=== PATIENT | male | born 1930 | race Caucasian/White ===

== ENCOUNTER 2016-09-17 16:24 | Observation (INO) | payer MEDICARE, BC ==
[2016-09-17 17:07] LABS: Glucose,Whole Blood 97 mg/dL (75-99)
--- NOTE | 2016-09-17 17:07 | ED ---
General Adult HPI - General Chief complaint: Upper Respiratory Infection Stated complaint: flu symptoms Time Seen by Provider: 09/17/16 16:25 Source: patient, RN notes reviewed Mode of arrival: wheelchair Limitations: no limitations - History of Present Illness Initial comments: This is an 85-year-old male who was recently discharged from the hospital after he was admitted for influenza according to the . gives most of the history because she states the patient is a little bit confused. states he has been complaining home of having hard time breathing though he currently seems a lot better. She also states she's been altered mentally at home and disoriented. states earlier today he was even a little confused as to who he was though he is currently back to his baseline. states she's not had any recent fever or chills. states she still coughing quite a bit. Patient denies any chest pain patient denies any abdominal pain patient denies any nausea vomiting or diarrhea. Patient denies headache patient denies any numbness weakness. - Related Data Home Medications Medication Instructions Recorded Confirmed Atenolol [Tenormin] 50 mg PO DAILY 02/15/15 09/17/16 Lisinopril-Hctz 20-12.5 mg 1 tab PO DAILY 02/15/15 09/17/16 [Zestoretic 20-12.5] Ranitidine HCl [Zantac] 75 mg PO HS 02/15/15 09/17/16 Verapamil HCl [Verapamil ER] 180 mg PO DAILY 02/15/15 09/17/16 ALPRAZolam [Xanax] 0.25 mg PO BID PRN 09/17/16 09/17/16 Aspirin 325 mg PO DAILY 09/17/16 09/17/16 Cyanocobalamin (Vitamin B-12) 1,000 mcg PO DAILY 09/17/16 09/17/16 [Vitamin B-12] [place]-3 Fatty Acids/Fish Oil [Fish 1 cap PO DAILY 09/17/16 09/17/16 Oil 1,000 mg Softgel] Allergies Allergy/AdvReac Type Severity Reaction Status Date / Time venom-honey bee Allergy Unknown Verified 09/17/16 17:06 [bee venom (honey bee)] Review of Systems ROS Statement: Those systems with pertinent positive or pertinent negative responses have been documented in the HPI. ROS Other: All systems not noted in ROS Statement are negative. Past Medical History Past Medical History: Hypertension History of Any Multi-Drug Resistant Organisms: None Reported Past Surgical History: Hernia Repair Past Psychological History: No Psychological Hx Reported Smoking Status: Never smoker Past Alcohol Use History: None Reported Past Drug Use History: None Reported General Exam - General Exam Comments Initial Comments: GENERAL: Patient is well-developed and well-nourished. Patient is nontoxic and well- hydrated and is in mild distress. ENT: Neck is soft and supple. No significant lymphadenopathy is noted. Oropharynx is clear. Moist mucous membranes. Neck has full range of motion without eliciting any pain. EYES: The sclera were anicteric and conjunctiva were pink and moist. Extraocular movements were intact and pupils were equal round and reactive to light. Eyelids were unremarkable. PULMONARY: Unlabored respirations. Good breath sounds bilaterally. Right lower lobe crackles CARDIOVASCULAR: There is a regular rate and rhythm without any murmurs gallops or rubs. ABDOMEN: Soft and nontender with normal bowel sounds. No palpable organomegaly was noted. There is no palpable pulsatile mass. SKIN: Skin is clear with no lesions or rashes and otherwise unremarkable. NEUROLOGIC: Patient is alert and oriented 2 cranial nerves II through XII are grossly intact. Motor and sensory appear to be intact MUSCULOSKELETAL: Normal extremities with adequate strength and full range of motion. No lower extremity swelling or edema. No calf tenderness. LYMPHATICS: No significant lymphadenopathy is noted PSYCHIATRIC: Normal psychiatric evaluation. Normal interpersonal interactions appears functionally intact in deals appropriately with others. Limitations: no limitations Course Vital Signs 09/17/16 09/17/16 09/17/16 16:26 16:50 17:00 Temperature 97.4 F L 98.3 F Pulse Rate 61 64 Respiratory 17 22 20 Rate Blood Pressure 131/64 155/65 O2 Sat by Pulse 93 L 99 Oximetry 09/17/16 09/17/16 09/17/16 18:00 18:42 19:24 Temperature 98.2 F Pulse Rate 62 72 64 Respiratory 18 18 22 Rate Blood Pressure 151/53 153/56 148/61 O2 Sat by Pulse 95 95 98 Oximetry Medical Decision Making - Medical Decision Making EKG shows sinus rhythm FL interval is 152 QRS is 114 QT interval is 4:30 QTC is 447. Patient's EKG shows no ST segment elevation or depression or T-wave abdomen is noted. Chest x-ray shows no acute abnormality. CT of the brain shows no acute normalities compared to an old CT. I went back into the room on multiple occasions speak with the family they indicated to me that the patient was becoming confused and at times becoming much improved and becoming confused again. The last I went into the room the patient was very anxious and somewhat confused - Lab Data Result diagrams: 09/17/16 16:45 09/17/16 16:45 Lab Results 09/17/16 09/17/16 09/17/16 Range/Units 16:45 16:45 16:45 WBC 9.8 (3.8-10.6) k/uL RBC 4.66 (4.30-5.90) m/uL Hgb 13.4 (13.0-17.5) gm/dL Hct 40.9 (39.0-53.0) % MCV 87.7 (80.0-100.0) fL MCH 28.7 (25.0-35.0) pg MCHC 32.7 (31.0-37.0) g/dL RDW 14.0 (11.5-15.5) % Plt Count 257 (150-450) k/uL Neutrophils % 59 % Lymphocytes % 30 % Monocytes % 8 % Eosinophils % 2 % Basophils % 0 % Neutrophils # 5.7 (1.3-7.7) k/uL Lymphocytes # 2.9 (1.0-4.8) k/uL Monocytes # 0.8 (0-1.0) k/uL Eosinophils # 0.2 (0-0.7) k/uL Basophils # 0.0 (0-0.2) k/uL PT (9.0-12.0) sec INR (<1.1) APTT (22.0-30.0) sec Sodium 139 (137-145) mmol/L Potassium 4.4 (3.5-5.1) mmol/L Chloride 102 (98-107) mmol/L Carbon Dioxide 26 (22-30) mmol/L Anion Gap 11 mmol/L BUN 30 H (9-20) mg/dL Creatinine 1.39 H (0.66-1.25) mg/dL Est GFR (MDRD) Af Amer 59 (>60 ml/min/1.73 sqM) Est GFR (MDRD) Non-Af 49 (>60 ml/min/1.73 sqM) Glucose 103 H (74-99) mg/dL POC Glucose (mg/dL) (75-99) mg/dL POC Glu Analyst [employer] ID Calcium 9.0 (8.4-10.2) mg/dL Total Bilirubin 0.7 (0.2-1.3) mg/dL AST 31 (17-59) U/L ALT 63 (21-72) U/L Alkaline Phosphatase 49 (38-126) U/L Total Creatine Kinase 104 (55-170) U/L CK-MB (CK-2) 1.5 (0.0-2.4) ng/mL CK-MB (CK-2) Rel Index 1.4 Troponin I <0.012 (0.000-0.034) ng/mL Total Protein 6.9 (6.3-8.2) g/dL Albumin 3.7 (3.5-5.0) g/dL Urine Color Urine Appearance (Clear) Urine pH (5.0-8.0) Ur Specific [place] (1.001-1.035) Urine Protein (Negative) Urine Glucose (UA) (Negative) Urine Ketones (Negative) Urine Blood (Negative) Urine Nitrite (Negative) Urine Bilirubin (Negative) Urine Urobilinogen (<2.0) mg/dL Ur Leukocyte Esterase (Negative) Urine Opiates Screen (NotDetected) Ur Oxycodone Screen (NotDetected) Urine Methadone Screen (NotDetected) Ur Propoxyphene Screen (NotDetected) Ur Barbiturates Screen (NotDetected) U Tricyclic Antidepress (NotDetected) Ur Phencyclidine Scrn (NotDetected) Ur Amphetamines Screen (NotDetected) U Methamphetamines Scrn (NotDetected) U Benzodiazepines Scrn (NotDetected) Urine Cocaine Screen (NotDetected) U Marijuana (THC) Screen (NotDetected) 09/17/16 09/17/16 09/17/16 Range/Units 16:45 17:06 17:10 WBC (3.8-10.6) k/uL RBC (4.30-5.90) m/uL Hgb (13.0-17.5) gm/dL Hct (39.0-53.0) % MCV (80.0-100.0) fL MCH (25.0-35.0) pg MCHC (31.0-37.0) g/dL RDW (11.5-15.5) % Plt Count (150-450) k/uL Neutrophils % % Lymphocytes % % Monocytes % % Eosinophils % % Basophils % % Neutrophils # (1.3-7.7) k/uL Lymphocytes # (1.0-4.8) k/uL Monocytes # (0-1.0) k/uL Eosinophils # (0-0.7) k/uL Basophils # (0-0.2) k/uL PT 12.9 H (9.0-12.0) sec INR 1.3 (<1.1) APTT 24.5 (22.0-30.0) sec Sodium (137-145) mmol/L Potassium (3.5-5.1) mmol/L Chloride (98-107) mmol/L Carbon Dioxide (22-30) mmol/L Anion Gap mmol/L BUN (9-20) mg/dL Creatinine (0.66-1.25) mg/dL Est GFR (MDRD) Af Amer (>60 ml/min/1.73 sqM) Est GFR (MDRD) Non-Af (>60 ml/min/1.73 sqM) Glucose (74-99) mg/dL POC Glucose (mg/dL) 97 (75-99) mg/dL POC Glu Analyst [employer] ID [place], [place] Calcium (8.4-10.2) mg/dL Total Bilirubin (0.2-1.3) mg/dL AST (17-59) U/L ALT (21-72) U/L Alkaline Phosphatase (38-126) U/L Total Creatine Kinase (55-170) U/L CK-MB (CK-2) (0.0-2.4) ng/mL CK-MB (CK-2) Rel Index Troponin I (0.000-0.034) ng/mL Total Protein (6.3-8.2) g/dL Albumin (3.5-5.0) g/dL Urine Color Yellow Urine Appearance Clear (Clear) Urine pH 6.0 (5.0-8.0) Ur Specific [place] 1.018 (1.001-1.035) Urine Protein Trace H (Negative) Urine Glucose (UA) Negative (Negative) Urine Ketones Negative (Negative) Urine Blood Negative (Negative) Urine Nitrite Negative (Negative) Urine Bilirubin Negative (Negative) Urine Urobilinogen <2.0 (<2.0) mg/dL Ur Leukocyte Esterase Negative (Negative) Urine Opiates Screen Not Detected (NotDetected) Ur Oxycodone Screen Not Detected (NotDetected) Urine Methadone Screen Not Detected (NotDetected) Ur Propoxyphene Screen Not Detected (NotDetected) Ur Barbiturates Screen Not Detected (NotDetected) U Tricyclic Antidepress Not Detected (NotDetected) Ur Phencyclidine Scrn Not Detected (NotDetected) Ur Amphetamines Screen Not Detected (NotDetected) U Methamphetamines Scrn Not Detected (NotDetected) U Benzodiazepines Scrn Detected H (NotDetected) Urine Cocaine Screen Not Detected (NotDetected) U Marijuana (THC) Screen Not Detected (NotDetected) Disposition Clinical Impression: Altered mental status Disposition: ADMITTED IP TO THIS HOSP Time of Disposition: 19:49
[2016-09-17 17:14] LABS: Basophils % (A) 0 %; CH 28.6; CHCM 32.7; Eosinophils # (A) 0.2 k/uL (0-0.7); Eosinophils % (A) 2 %; HCT 40.9 % (39.0-53.0); HDW 2.54; HGB 13.4 gm/dL (13.0-17.5); Luc # (Auto) 0.14; Luc % (Auto) 2; Lymphocytes # (A) 2.9 k/uL (1.0-4.8); Lymphocytes % (A) 30 %; MCH 28.7 pg (25.0-35.0); MCHC 32.7 g/dL (31.0-37.0); MCV 87.7 fL (80.0-100.0); Mean Platelet Volume 7.3; Monocytes # (A) 0.8 k/uL (0-1.0); Monocytes % (A) 8 %; Neutrophils # (A) 5.7 k/uL (1.3-7.7); Neutrophils % (A) 59 %; RBC 4.66 m/uL (4.30-5.90); WBC 9.8 k/uL (3.8-10.6); WBC (Perox) 10.31
[2016-09-17 17:17] LABS: Appearance,Urine Clear (Clear); Bilirubin,Urine Negative (Negative); Glucose,Urine (UA) Negative (Negative); Ketones,Urine Negative (Negative); Leukocyte Esterase,Urine Negative (Negative); Nitrite,Urine Negative (Negative); Protein,Urine Trace (Negative); Specific Gravity,Urine 1.018 (1.001-1.035); UA Billing (MACRO vs. MICRO) CHEM; Urobilinogen,Urine <2.0 mg/dL (<2.0)
[2016-09-17 17:22] LABS: INR 1.3 (<1.1); Partial Thromboplastin Time 24.5 sec (22.0-30.0); Prothrombin Time 12.9 sec (9.0-12.0)
[2016-09-17 17:27] LABS: Potassium 4.4 mmol/L (3.5-5.1); Total Bilirubin 0.7 mg/dL (0.2-1.3); Total Protein 6.9 g/dL (6.3-8.2)
[2016-09-17 17:34] LABS: Creatine Kinase 104 U/L (55-170)
--- NOTE | 2016-09-17 17:42 | XR ---
EXAMINATION TYPE: XR chest 2V DATE OF EXAM: 09/17/2016 5:20 PM COMPARISON: Prior chest x-ray 09 January 2016 HISTORY: Altered mental status, cough TECHNIQUE: Frontal and lateral views of the chest are obtained on 3 images. FINDINGS: There is no focal air space opacity, pleural effusion, or pneumothorax seen. The cardiac silhouette size is stable. Prominent lung volume may be indicative of COPD. There are overlying car diac leads. The osseous structures are intact. IMPRESSION: Stable cardiomegaly.
[2016-09-17 17:47] LABS: Creatine Kinase MB 1.5 ng/mL (0.0-2.4); Troponin I <0.012 ng/mL (0.000-0.034)
--- NOTE | 2016-09-17 19:34 | CT ---
EXAMINATION TYPE: CT brain wo con DATE OF EXAM: 09/17/2016 7:01 PM COMPARISON: Prior exam January HISTORY: Patient poor historian. Patient had episodes of altered mental status per family. CT DLP: 833.5 mGycm Automated exposure control for dose reduction was used. FINDINGS: There is no acute intracranial hemorrhage, mass effect, or midline shift identified. The ventricles and sulci are within normal limits in size. Periventricular white matter demyelination cortical atrop hy are again noted. The globes are intact and the visualized sinuses are clear. IMPRESSION: No acute intracranial hemorrhage, mass effect, or midline shift is seen.
[2016-09-17] MEDS ORDERED: LORazepam 2 MG/ML SYRINGE IV STA (19:48)
[2016-09-17] MEDS ORDERED: SODIUM CHLORIDE 0.9% 1,000 ML IV ONE (19:50)
[2016-09-17 21:36] VITALS: BMI 24.5
[2016-09-18] MEDS ORDERED: HALOPERIDOL 1 MG TAB PO PRN (00:49)
[2016-09-18] MEDS: ATENOLOL 50 MG TAB PO SCH (09:02)
[2016-09-18] MEDS: ASPIRIN 325 MG TAB PO SCH (09:02)
[2016-09-18] MEDS: VERAPAMIL SR 180 MG TABLET.ER PO SCH (09:02)
--- NOTE | 2016-09-18 11:06 | XR ---
EXAMINATION TYPE: XR chest 1V DATE OF EXAM: 09/18/2016 10:59 AM COMPARISON: Prior chest x-ray 17 September 2016 HISTORY: Abnormal chest x-ray, influenza TECHNIQUE: Single frontal view of the chest is obtained. FINDINGS: There is no focal air space opacity, pleural effusion, or pneumothorax seen. The cardiac silhouette size is stable. Prominent lung volumes suggest underlying COPD. The osseous structures a re intact. IMPRESSION: No acute process.
[2016-09-18 11:16] LABS: Anion Gap 12 mmol/L; Blood Urea Nitrogen 28 mg/dL (9-20); Calcium 8.5 mg/dL (8.4-10.2); Carbon Dioxide 26 mmol/L (22-30); Chloride 102 mmol/L (98-107); Glucose 118 mg/dL (74-99); Non-African American GFR(MDRD) 51 (>60 ml/min/1.73 sqM); Sodium 140 mmol/L (137-145)
--- NOTE | 2016-09-18 13:46 | HP ---
DATE OF ADMISSION: This dictation is both H&P and discharge summary. Patient is a pleasant 85-year-old gentleman who was discharged from the hospital recently in [place] after he was treated for influenza and bronchitis and influenza upper respiratory infection. Patient still appears to have some bronchitis with yellowish sputum production for which I am giving him doxycycline. Patient was apparently confused on and off. As per the ER physician yesterday, patient is sometimes alert and oriented times close to 3 and sometimes he is confused. Upon further history from the daughter who lives in [place], patient does have dementia, and has episodes of lucency and confusional episodes. Patient appears to have mild kidney dysfunction. 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 Patient's urine is positive for benzodiazepines. His girlfriend gives him Xanax whenever he gets confused and agitated, which is probably not an approximate thing to do, which is making him more confused, which I believe is contributing to his symptoms. I do not have his baseline creatinine. Patient mostly lives in [place], [place] and [place] and I did not see any signs or symptoms of sepsis. Chest x-ray did not show any pneumonia. We will ambulate the patient. Will get rid of oxygen. Patient does have bronchitis. If patient is able to ambulate well. Patient will be discharged today and patient's physician is out of town. Will follow with the physician as an outpatient. Wherever he lives home care will probably help him and home physical therapy will probably help him. REVIEW OF SYSTEMS: CONSTITUTIONAL: No fever, no malaise, no fatigue. HEENT: No recent visual problems or hearing problems. Denied any sore throat. CARDIOVASCULAR: No chest pain, orthopnea, PND, no palpitations, no syncope. PULMONARY: No shortness of breath, no cough, no hemoptysis. GASTROINTESTINAL: No diarrhea, no nausea, no vomiting, no abdominal pain. Normoactive bowel sounds. NEUROLOGICAL: No headaches, no weakness, no numbness. HEMATOLOGICAL: Denies any bleeding or petechiae. GENITOURINARY: Denies any burning micturition, frequency, or urgency. MUSCULOSKELETAL/RHEUMATOLOGICAL: Denies any joint pain, swelling, or any muscle pain. ENDOCRINE: Denies any polyuria or polydipsia. The rest of the 14 point review of systems is negative. Home medications include: Atenolol, lisinopril, hydrochlorothiazide, ranitidine, verapamil, Xanax, cyanocobalamin, Cherry-3 fatty acids and lisinopril, hydrochlorothiazide. ALLERGIES: Allergic to BEE VENOM. PAST MEDICAL HISTORY: Significant for hypertension, senile dementia, gastroesophageal reflux disease, hernia repair in the past. SOCIAL HISTORY: Denied any smoking, alcohol abuse or drug abuse. Family history is unknown and not relevant at this point of time at this age. PHYSICAL EXAMINATION: Temperature 97.3, pulse of 60, respiratory rate of 16, blood pressure 155/61, saturating at 96% on 3 liters of oxygen by nasal cannula. Will taper down and completely discontinue oxygen and see how his saturations are. GENERAL: The patient is alert and oriented x3, not in any acute distress. Well developed, well nourished. HEENT: Pupils are round and equally reacting to light. EOMI. No scleral icterus. No conjunctival pallor. Normocephalic, atraumatic. No pharyngeal erythema. No thyromegaly. CARDIOVASCULAR: S1 and S2 present. No murmurs, rubs, or gallops. PULMONARY: Rhonchus breath sounds. No wheezing was appreciated. No crackles were appreciated. ABDOMEN: Soft, nontender, nondistended, normoactive bowel sounds. No palpable organomegaly. MUSCULOSKELETAL: No joint swelling or deformity. EXTREMITIES: No cyanosis, clubbing, or pedal edema. NEUROLOGICAL: Gross neurological examination did not reveal any focal deficits. SKIN: No rashes. LABORATORY DATA: CBC and CMP are abnormal for elevated BUN and creatinine of 30 and 1.39. I do not have his baseline creatinine. Repeat creatinine after IV fluids remains the same. Patient may have CKD, but anyways will discontinue lisinopril hydrochlorothiazide and see if that improves his creatinine down the line as an outpatient with repeat basic metabolic profile. Brain CT essentially within normal limits. Chest x-ray did not show pneumonic process. ASSESSMENT AND PLAN: 1. Delirium and altered mental status secondary to narcotic medications including benzodiazepines, which will be discontinued. Patient has senile dementia with periods of lucency, non-lucent and lucent periods, which is not uncommon. Patient will be discharged today. 2. Renal dysfunction or acute renal failure; I am not sure whether patient has acute renal failure or not. Anyways, the patient received IV fluids. 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 Lisinopril, hydrochlorothiazide will be discontinued and re-evaluate. Will order kidney functions. If it turns out to be CKD, if blood pressure is not controlled and if he requires those medications they can be restarted. As of now I will discontinue them. 3. Hypertension, atenolol and verapamil will be continued. Patient is in mild sinus bradycardia. 4. Regarding delirium and agitational episodes, I will use Seroquel. Discontinue Xanax. Avoid benzodiazepines, barbiturates and anticholinergic medications. These are absolute contraindications in people of his age and people with dementia. 5. For bronchitis, will use doxycycline. 6. Recent influenza infection. Patient will not benefit from Tamiflu at this time. Patient will be discharged today. This dictation is both H&P and discharge summary. DISCHARGE DIET: Cardiac. Activity as tolerated. Follow with his primary care physician here in [place] or [facility] in 3 to 7 days.
[2016-09-18] MEDS ORDERED: QUEtiapine 25 MG TAB PO SCH (21:00)
[2016-09-18] MEDS ORDERED: FAMOTIDINE 20 MG TAB PO SCH (21:00)
[2016-09-19 07:32] VITALS: BP 156/80; PULSE 62; RESP 24; TEMP 97.8
[2016-09-19] MEDS: VERAPAMIL SR 180 MG TABLET.ER PO SCH (08:53)
[2016-09-19] MEDS: ATENOLOL 50 MG TAB PO SCH (08:53)
[2016-09-19] MEDS: ASPIRIN 325 MG TAB PO SCH (08:53)
--- NOTE | 2016-09-19 17:40 | P.DS ---
Providers Date of admission: 09/17/16 19:51 Expected date of discharge: 09/19/16 Attending physician: Heber Rios Primary care physician: Physician Nonstaff Hospital Course: Final Diagnoses: 1. Delirium, altered mental status secondary to narcotic medications including benzodiazepines which have been discontinued. Patient presenting with senile dementia with periods of lucency-not uncommon. Seroquel added to med regime, celiac discontinued. 2. Acute renal failure or renal dysfunction, improving with IV fluids. Suspect CKD in a patient with hypertension with hypertensive nephrosclerosis. Fosinopril, hydrochlorothiazide discontinued. Reevaluate in outpatient setting. 3. Hypertension, maintained on atenolol and verapamil. 4. Recent influenza infection with bronchitis. Hospital course: Please refer to discharge summary completed yesterday. Patient Condition at Discharge: Stable Plan - Discharge Summary New Discharge Prescriptions: Doxycycline Monohydrate [Monodox] 100 mg PO Q12HR #10 cap QUEtiapine [SEROquel] 25 mg PO HS #30 tab Discharge Medication List Atenolol [Tenormin] 50 mg PO DAILY 02/15/15 [History] Ranitidine HCl [Zantac] 75 mg PO HS 02/15/15 [History] Verapamil HCl [Verapamil ER] 180 mg PO DAILY 02/15/15 [History] Aspirin 325 mg PO DAILY 09/17/16 [History] Cyanocobalamin (Vitamin B-12) [Vitamin B-12] 1,000 mcg PO DAILY 09/17/16 [ History] [place]-3 Fatty Acids/Fish Oil [Fish Oil 1,000 mg Softgel] 1 cap PO DAILY [History] QUEtiapine [SEROquel] 25 mg PO HS #30 tab 09/18/16 [Rx] Doxycycline Monohydrate [Monodox] 100 mg PO Q12HR #10 cap 09/19/16 [Rx] Follow up Appointment(s)/Referral(s): PCP in [facility] Pt's own [Other] - 1 Week Ambulatory/Diagnostic Orders: Basic Metabolic Panel [LAB.AMB] Time Frame: 3 Days, Location: Determined By Patient Patient Instructions/Handouts: Altered Mental Status (GEN) Discharge Disposition: HOME SELF-CARE
== END 2016-09-19 15:28 | disposition home or self-care (01) ==
LOC: EC 16:24 → 4MS4W 19:51
PROVIDERS: ADMIT Internal Medicine; ATTEND Internal Medicine
DX: R41.82 Altered mental status, unspecified (principal); T42.4X5A Adverse effect of benzodiazepines, initial encounter; J40 Bronchitis, not specified as acute or chronic; N28.9 Disorder of kidney and ureter, unspecified; I10 Essential (primary) hypertension; F03.90 Unspecified dementia, unspecified severity, without behavioral disturbance, psychotic disturbance, mood disturbance, and anxiety; K21.9 Gastro-esophageal reflux disease without esophagitis; Z79.899 Other long term (current) drug therapy
CPT/HCPCS: 96374 ×2; 99285 ×2; 36415; 94760; 93005; 97162; 97166; 80053; 80048; 82550; 82553; 84484; 85025; 85610; 85730; 81003; 87040; 80306; 71010; 71020; 70450; G0378 ×3; J2060; 96361